=== PATIENT | female | born 1975 | race Two or more races ===

== ENCOUNTER → 2021-01-30 | Outpatient (CLI) | payer OTHER ==
[2021-01-31 03:06] LABS: RUBEOLA (MEASLES) IGG <13.5 AU/mL (Immune >16.4)
== END | disposition home or self-care (01) ==
LOC: MSR 15:42
PROVIDERS: ATTEND Internal Medicine
DX: Z02.1 Encounter for pre-employment examination (principal); R76.11 Nonspecific reaction to tuberculin skin test without active tuberculosis
CPT/HCPCS: 71045; 86706; 86735; 86762; 86765; 86787; 36415-L1; 36415-TC

== ENCOUNTER 2021-09-08 08:42 | Emergency (ER) | payer OTHER ==
[~2021-09-08] VITALS: Ht 162.6 cm; Wt 79.5 kg
[2021-09-08 12:14] LABS: COVID AG,FIA SOURCE NASOPHARYNGEAL
[2021-09-08 12:41] LABS: INFLUENZA TYPE A NEGATIVE FOR TYPE A (NEGATIVE); INFLUENZA TYPE B NEGATIVE FOR TYPE B (NEGATIVE)
[2021-09-08] MEDS ORDERED: [UNRECOGNIZED DRUG - CODE] PO (14:03)
[2021-09-08] MEDS ORDERED: PROM118S5 PO (14:03)
[2021-09-08] MEDS ORDERED: BENZ-70 PO (14:03)
[2021-09-08 14:10] VITALS: BP 123/73
== END 2021-09-08 14:15 | disposition home or self-care (01) ==
LOC: EMS 08:42
DX: J06.9 Acute upper respiratory infection, unspecified (principal); Z20.822 Contact with and (suspected) exposure to COVID-19
CPT/HCPCS: 71045; 87804; 99284